=== PATIENT | male | born 1985 | race African-American/Black ===

== ENCOUNTER 2024-03-30 12:57 | Emergency (ER) | payer OTHER ==
[~2024-03-30] VITALS: Ht 188 cm; Wt 77.3 kg
[~2024-03-30 12:57] MED LIST: BENADRYL50 MG PO; EPIPEN 2-PAK1 MG/ML IM; PEPCID 20MG TAB20 MG PO; PREDNISONE20 MG PO; REGLAN 10MG10 MG/TAB PO; SARAFEM10 M1 PO; ULTRAM ER100 MG PO; VALTREX1 GM PO; ZESTRIL 10MG10 MG PO; ZORVOLEX35 MG PO
[2024-03-30 12:59] VITALS: TEMP 97.6
[2024-03-30] MEDS ORDERED: NS 1,000 ML IV ONE ×2 (13:30→15:30)
[2024-03-30 14:15] LABS: BASO # 0.1 K/mm3 (0.0-0.2); BASO % 0.6 % (0.0-2.0); EOS % 0.1 % (0.0-4.0); GRAN # 9.2 K/mm3 (1.4-6.5); GRAN % 81.4 % (42.2-75.2); HEMATOCRIT 35.5 % (42.0-52.0); LYMPH # 1.2 K/mm3 (1.2-3.4); LYMPH % 10.5 % (20.0-51.0); MEAN CELL VOLUME 89 fl (80.0-100.0); MEAN CORPUSCULAR HEMOGLOBIN 30 pg (27-31); MEAN CORPUSCULAR HGB CONC 34 g/dl (33.0-37.0); MEAN PLATELET VOLUME 8.7 fl (7.4-10.4); MONO # 0.8 K/mm3 (0.1-0.6); PLATELET COUNT 534 K/mm3 (130-400); RED BLOOD COUNT 3.97 M/mm3 (4.20-5.60); REDCELL DISTRIBUTION WIDTH-CV 14.7 % (11.5-14.5)
[2024-03-30 14:29] LABS: ALBUMIN 3.7 g/dL (3.5-5.0); BILIRUBIN,TOTAL 0.7 mg/dL (0.2-1.2); CALCIUM 9.7 mg/dL (8.4-10.2); CREATININE, serum 1.17 mg/dL (0.72-1.25); TOTAL PROTEIN 7.8 g/dl (6.2-8.1)
[2024-03-30 15:02] LABS: POTASSIUM 2.8 mEq/L (3.5-4.5)
[2024-03-30] MEDS ORDERED: droPERidol 2.5 MG/ML 2 ML VIAL IV ONE (16:00)
[2024-03-30 16:59] VITALS: BP 173/98; PULSE 101
== END 2024-03-30 16:59 | disposition home or self-care (01) ==
LOC: COL.ER 12:57
PROVIDERS: Personal Emergency Response Attendant
DX: E87.6 Hypokalemia (principal); F41.9 Anxiety disorder, unspecified
CPT/HCPCS: J1790; J7030